=== PATIENT | male | born 1960 | race Caucasian/White ===

== ENCOUNTER 2017-05-30 14:55 | Emergency (ER) | payer OTHER ==
[~2017-05-30] VITALS: Ht 177.8 cm; Wt 100.9 kg
[~2017-05-30 14:55] MED LIST: MOTRIN800 MG PO; VALIUM5 MG PO
[2017-05-30] MEDS ORDERED: PAXIL20 MG PO (15:31)
[2017-05-30] MEDS ORDERED: PLAVIX75 MG PO (15:31)
[2017-05-30] MEDS ORDERED: ASPIR 8181 M1 PO (15:31)
[2017-05-30] MEDS ORDERED: ZESTRIL40 MG PO (15:31)
[2017-05-30] MEDS ORDERED: HYDROCHLOROTH12.5 M3 PO (15:31)
[2017-05-30] MEDS ORDERED: NITROGLYCERIN0.4 MG SL (15:32)
[2017-05-30 15:40] LABS: HEMATOCRIT 45.3 % (38.0-50.0); MCH 28.2 PG (29.0-34.0); MCHC 33.3 G/DL (30.0-36.0); MCV 84.5 FL (86-99); MEAN PLAT.VOLUME 8.4 uM^3 (9.0-12.4); PLATELET COUNT 424 K/uL (156-360); RBC DIS.WIDTH-CV 12.4 % (11.8-14.6); RED BLOOD COUNT 5.36 M/uL (4.00-5.50); WHITE BLOOD COUNT 10.2 K/uL (4.1-10.2)
[2017-05-30 15:46] LABS: CHLORIDE 100 mEq/L (99-109); POTASSIUM 3.8 mEq/L (3.7-5.4); SODIUM 139 mEq/L (136-147)
[2017-05-30 15:48] LABS: GLUCOSE 107 mg/dL (70-99)
[2017-05-30 15:50] LABS: ANION GAP 12 MEQ/L (2-14)
[2017-05-30 15:52] LABS: GFR ESTIMATE (CALCULATED) > 59 mL/min/
[2017-05-30 15:53] LABS: UREA NITROGEN (BUN) 13 mg/dL (9-23)
[2017-05-30 16:00] LABS: TROP-I INTERPRETATION NEGATIVE; TROPONIN-I < 0.01 ng/mL (0.0-0.30)
[2017-05-30 19:53] LABS: TROP-I INTERPRETATION NEGATIVE; TROPONIN-I 0.02 ng/mL (0.0-0.30)
[2017-05-30] MEDS ORDERED: MOTRIN600 MG PO (20:55)
[2017-05-30] MEDS ORDERED: PERCOCET 5/31 TABLET PO (20:55)
[2017-05-30 21:08] VITALS: BP 130/87
== END 2017-05-30 21:08 | disposition home or self-care (01) ==
LOC: EME 14:55
PROVIDERS: Emergency Medicine
DX: R07.89 Other chest pain (principal); I10 Essential (primary) hypertension; Z95.5 Presence of coronary angioplasty implant and graft; Z95.0 Presence of cardiac pacemaker; Z86.73 Personal history of transient ischemic attack (TIA), and cerebral infarction without residual deficits
CPT/HCPCS: 71020; 71275; 80048; 84484; 85027; 93005; J1885; J2270